=== PATIENT | female | born 1995 | race African-American/Black ===

== ENCOUNTER 2024-02-17 10:37 | Observation (INO) | payer OTHER ==
[2024-02-17] MEDS ORDERED: hydrALAZINE 20 MG/ML VIAL SLOW IVP PRN ×2 (10:38→15:21)
[2024-02-17 12:01] LABS: #Basophils 0.02 10x3/uL (0.0-0.2); #Eosinphils 0.12 10x3/uL (0.0-0.5); #Monocytes 0.73 10x3/uL (0.0-1.1); #Neutrophils 3.69 10x3/uL (1.5-8.4); %Basophils 0.3 % (0.0-2.0); %Lymphocytes 21.7 % (18.0-47.0); %Monocytes 12.4 % (0.0-10.0); %Neutrophils 62.4 % (40.0-75.0); Mean Corpuscular HGB CONC 32.3 g/dL (32.0-36.0); Mean Corpuscular Hemoglobin 29.2 pg (27.0-33.0); Mean Corpuscular Volume 90.4 fL (81.6-98.3); Mean Platelet Volume 8.5 fL (7.4-10.4); Platelet Count 260 10x3/uL (150-450); RBC Distribution Width 13.7 % (11.5-14.5); Red Blood Cell (RBC) Count 3.43 10x6/uL (3.90-5.03); White Blood Cell (WBC) Count 5.9 10x3/uL (3.5-10.5)
[2024-02-17 12:02] LABS: Creatinine, Urine 293.76 mg/dL (47-110)
[2024-02-17 12:15] LABS: ALT (SGPT) 17 U/L (8-55); AST (SGOT) 13 U/L (5-34); Albumin 2.6 g/dL (3.5-5.0); Alkaline Phosphatase 78 U/L (40-110); Anion Gap 13 mmol/L (10-20); BUN (Urea Nitrogen) 9 mg/dL (7.0-18.7); Bilirubin, Total 0.2 mg/dL (0.2-1.2); Calc. Creatinine Clearance 0 mL/min (70-130); Calcium 8.8 mg/dL (7.8-10.44); Carbon Dioxide 20 mmol/L (22-29); Chloride 108 mmol/L (98-107); Estimated GFR 116; Globulin 3.7 g/dL (2.4-3.5); Glucose 95 mg/dL (70-105); Potassium 3.6 mmol/L (3.5-5.1); Protein, Total 6.3 g/dL (6.0-8.3); Sodium 137 mmol/L (136-145)
[2024-02-17 12:25] VITALS: BMI 40.4
[2024-02-17] MEDS ORDERED: Ondansetron PF 4 MG/2 ML Vial IVP PRN (15:21)
[2024-02-17] MEDS ORDERED: Acetaminophen 500 MG TAB PO PRN (15:21)
[2024-02-17] MEDS ORDERED: Promethazine HCl 25 MG/ML VIAL IM PRN (15:21)
[2024-02-17] MEDS ORDERED: Docusate 100 MG CAP PO PRN (15:21)
[2024-02-17 20:17] LABS: Uric Acid 3.6 mg/dL (2.6-6.0)
[2024-02-17] MEDS: Labetalol HCl 200 MG TAB PO SCH (21:52)
[2024-02-18] MEDS: Calcium Carbonate 500 MG ChewTAB PO PRN (01:08)
[2024-02-18 04:33] LABS: #Basophils 0.03 10x3/uL (0.0-0.2); #Eosinphils 0.21 10x3/uL (0.0-0.5); #Monocytes 0.93 10x3/uL (0.0-1.1); #Neutrophils 3.67 10x3/uL (1.5-8.4); %Basophils 0.5 % (0.0-2.0); %Eosinophils 3.3 % (0.0-6.0); %Lymphocytes 23.6 % (18.0-47.0); %Monocytes 14.5 % (0.0-10.0); %Neutrophils 57.3 % (40.0-75.0); Hematocrit 29.1 % (34.9-44.5); Hemoglobin 9.2 g/dL (12.0-15.5); Mean Corpuscular HGB CONC 31.6 g/dL (32.0-36.0); Mean Corpuscular Hemoglobin 28.5 pg (27.0-33.0); Mean Corpuscular Volume 90.1 fL (81.6-98.3); Mean Platelet Volume 8.8 fL (7.4-10.4); Platelet Count 260 10x3/uL (150-450); RBC Distribution Width 13.7 % (11.5-14.5); Red Blood Cell (RBC) Count 3.23 10x6/uL (3.90-5.03); White Blood Cell (WBC) Count 6.4 10x3/uL (3.5-10.5)
[2024-02-18 04:40] LABS: Anion Gap 15 mmol/L (10-20); BUN (Urea Nitrogen) 10 mg/dL (7.0-18.7); Calc. Creatinine Clearance 203 mL/min (70-130); Carbon Dioxide 17 mmol/L (22-29); Chloride 108 mmol/L (98-107); Potassium 3.6 mmol/L (3.5-5.1); Sodium 136 mmol/L (136-145)
[2024-02-18 04:41] LABS: ALT (SGPT) 15 U/L (8-55); AST (SGOT) 12 U/L (5-34); Albumin 2.4 g/dL (3.5-5.0); Alkaline Phosphatase 77 U/L (40-110); Bilirubin, Total 0.2 mg/dL (0.2-1.2); Calcium 8.6 mg/dL (7.8-10.44); Estimated GFR 118; Globulin 3.5 g/dL (2.4-3.5); Glucose 103 mg/dL (70-105); Protein, Total 5.9 g/dL (6.0-8.3)
[2024-02-18] MEDS ORDERED: Non-Formulary Medication 1 EACH (Bictegrav/Emtricit/Tenofov Ala [Biktarvy 50-200-25 Mg Tab PO SCH (09:00)
[2024-02-18 11:24] VITALS: BP 121/65; TEMP 98.3
[2024-02-18 20:19] LABS: 24 Hr Creatinine 1886.9 mg/24 hr (710-1650); Creatinine, Urine 188.69 mg/dL (47-110)
== END 2024-02-18 13:40 | disposition home or self-care (01) ==
LOC: CSHLD/OP 10:37 → INTOOBSV 15:54 → CSHLD 15:54 → CSHANTE 18:10
PROVIDERS: ADMIT Family Medicine; ATTEND Family Medicine
DX: O99.891 Other specified diseases and conditions complicating pregnancy (principal); R51.9 Headache, unspecified; H53.9 Unspecified visual disturbance; O98.713 Human immunodeficiency virus [HIV] disease complicating pregnancy, third trimester; O99.013 Anemia complicating pregnancy, third trimester; O16.3 Unspecified maternal hypertension, third trimester; O00.01 Abdominal pregnancy with intrauterine pregnancy; O99.213 Obesity complicating pregnancy, third trimester; O34.211 Maternal care for low transverse scar from previous cesarean delivery; O36.8130 Decreased fetal movements, third trimester, not applicable or unspecified; Z3A.32 32 weeks gestation of pregnancy; Z79.899 Other long term (current) drug therapy
CPT/HCPCS: 36415; 59025; 76815; 76819; 80053; 82570; 84156; 84550; 85025; 99285; G0378